=== PATIENT | male | born 1970 | race Caucasian/White ===

== ENCOUNTER 2020-09-10 13:19 | Emergency (ER) | payer SELFPAY ==
[~2020-09-10] VITALS: Ht 177.8 cm; Wt 89.8 kg
[2020-09-10 13:23] VITALS: BP 141/84
--- NOTE | 2020-09-10 13:25 | NUR ---
AMBULATED TO BED 4
--- NOTE | 2020-09-10 13:30 | NUR ---
PATIENT PRESENTS TO ED WITH URINARY RETENTION . PT STATES THAT HE HAS NOT BEEN ABLE TO URINATE SINCE 2A. PAIN IN SUPRAPUBIC AREA. DENIES N/V/D; SKIN IS PINK/WARM/DRY; AAOX4 WITH EVEN AND STEADY GAIT; LUNGS CLEAR BL; HR EVEN AND REGULAR; PT DENIES ANY FEVER, CP, SOB, OR COUGH AT THIS TIME; PATIENT STATES PAIN OF 8/10 AT THIS TIME; VSS; PATIENT POSITIONED FOR COMFORT; HOB ELEVATED; BEDRAILS UP X2; BED DOWN. ER MD MADE AWARE OF PT STATUS.
--- NOTE | 2020-09-10 14:10 | NUR ---
# 14 FR Fofana catheter with 650 ml utilizing sterile technique. Immediate return of 650 ml CLEAR urine noted. Bedside drainage bag placed below level of bladder. Urine sample collected and sent to lab. Pt tolerated procedure WELL.
[2020-09-10 14:23] VITALS: BP 138/79
== END 2020-09-10 14:21 | disposition home or self-care (01) ==
LOC: MED 13:19
DX: R33.9 Retention of urine, unspecified (principal); R10.30 Lower abdominal pain, unspecified
CPT/HCPCS: 51702; 81002; 99284

== ENCOUNTER 2020-09-13 16:24 | Emergency (ER) | payer MEDICAID ==
[~2020-09-13] VITALS: Ht 175.3 cm; Wt 89.8 kg
[2020-09-13 16:35] VITALS: BP 143/86
[2020-09-13 17:13] VITALS: BP 143/86
== END 2020-09-13 17:15 | disposition home or self-care (01) ==
LOC: MED 16:24
DX: N40.0 Benign prostatic hyperplasia without lower urinary tract symptoms (principal); R33.9 Retention of urine, unspecified; R03.0 Elevated blood-pressure reading, without diagnosis of hypertension
CPT/HCPCS: 99283

== ENCOUNTER 2020-10-15 16:20 | Emergency (ER) | payer MEDICAID ==
[~2020-10-15] VITALS: Ht 175.3 cm; Wt 89.8 kg
[2020-10-15 16:39] VITALS: BP 149/110
[2020-10-15] MEDS ORDERED: KETOROLAC 30 MG/ML VIAL IM ONE (17:55)
--- NOTE | 2020-10-15 17:57 | NUR ---
PATIENT PRESENTS TO ED WITH C/O URINARY RETENTION . PT STATES H/O BPH WITH F/C PLACEMENT 10/11/2020 . PT STATES LAST EMPTIED BALDERAS BAG AT 0600 AND HAS NOT VOIDED SINCE. MUCH FACIAL GRIMACING IS NOTED, ABDOMEN DENIES N/V/D; SKIN IS PINK/WARM/DRY; AAOX4 WITH EVEN AND STEADY GAIT; LUNGS CLEAR BL; HR EVEN AND REGULAR; PT DENIES ANY FEVER, CP, SOB, OR COUGH AT THIS TIME; PATIENT STATES PAIN OF 10/10 AT THIS TIME; VSS; PATIENT POSITIONED FOR COMFORT; HOB ELEVATED; BEDRAILS UP X2; BED DOWN. ER MD MADE AWARE OF PT STATUS.
--- NOTE | 2020-10-15 18:35 | NUR ---
BALDERAS IRRIGATED USING STERILE TECHNIQUE. IMMEDIATE RETURN OF LARGE AMOUNT HAZY KRISTY COLORED URINE. PT STATES "AHHH, I FEEL SO MUCH BETTER"
--- NOTE | 2020-10-15 19:15 | NUR ---
RECEIVED REPORT FROM NIYA AVALOS
--- NOTE | 2020-10-15 19:48 | NUR ---
NEW BALDERAS CATH PLACED, 16 FR. PT HAD BLOOD CLOTS AND BLOODY RETURN OF SMALL AMOUNT OF URINE.
[2020-10-15 19:57] VITALS: BP 145/89
--- NOTE | 2020-10-15 19:59 | NUR ---
Patient discharged with v/s stable. Written and verbal after care instructions given and explained. Patient alert, oriented and verbalized understanding of instructions. Ambulatory with steady gait. All questions addressed prior to discharge. ID band removed. Patient advised to follow up with PMD. Rx of IBUPROFEN, PYRIDIUM, AND BACTRIM DS given. Patient educated on indication of medication including possible reaction and side effects. Opportunity to ask questions provided and answered.
[2020-10-15 20:57] LABS: APPEARANCE,URINE SL CLOUDY (CLEAR); BILIRUBIN,URINE NEGATIVE (NEGATIVE); BLOOD, URINE 3+ (NEGATIVE); COLOR,URINE YELLOW (YELLOW); LEUKOCYTE ESTERASE ,URINE 3+ (NEGATIVE); NITRITE, URINE NEGATIVE (NEGATIVE); UGLUCOSE NEGATIVE (NEGATIVE)
== END 2020-10-15 19:59 | disposition home or self-care (01) ==
LOC: MED 16:20
DX: R30.0 Dysuria (principal); N39.0 Urinary tract infection, site not specified
CPT/HCPCS: 51702; 81001; 87086; 96372; 99284; J1885; 99283